=== PATIENT | female | born 1950 | race Caucasian/White ===

== ENCOUNTER → 2016-12-11 | Outpatient (CLI) | payer OTHER, MEDICARE ==
[~2016-12-11] MED LIST: ALBU8I INH; ALPH200C3 PO; AMOX500T PO; ASPI325T PO; ATRO0.03; AZEL137S; CALTTAB5 PO; CARB25TA PO; CHOL5000 PO; DESV1TAB PO; DICL1GEL TOP; DICY10CA13 PO; ESTR30V VAGINAL; FLUT50SP EACH NARE; FURO20TA PO; K-TA10TA5 PO; LEVO100T4 PO; METO25 PO; METR0.7533 TOP; NORC7.5T PO; NYST100010 TOP; OCUVTAB PO; PANT20 PO; PREG100 PO; PROBCAP4 PO; QUET1TAB66 PO; TAB-TAB PO; VITA100017 PO; VITA10002 PO; Z.0.COMMODE-3:1; Z.0.CPM; Z.0.WALKERFRONT
[2016-12-11 10:27] LABS: BLOOD GAS BASE EXCESS -1.5 mmol/L (-2-2); BLOOD GAS CARBOXYHEMOGLOBIN 1.1 % (0-4); BLOOD GAS HCO3 22 mmol/L (22-26); BLOOD GAS METHEMOGLOBIN 1.3 % (0-2); BLOOD GAS O2 HGB SATURATION 96 % (90-100); BLOOD GAS OXYGEN CONTENT 16.6 Vol % (12.0-20.0); BLOOD GAS PCO2 32 mmHg (38-42); BLOOD GAS PO2 110 mmHg (61-120); BLOOD GAS TOTAL HGB 12.2 G/DL (12.0-16.0); CRITICAL VALUE NO; DRAW SITE RT RADIAL; FIO2 21 %; NUMBER OF ARTERIAL PUNCTURES 1; STAT NO; TEMP CORR TO 98.6; ULNAR PULSE PRESENT
--- NOTE | 2016-12-14 08:50 | RSPPFT ---
DATE OF PROCEDURE: 12/11/16 COMMENTS: Spirometry with FVC of 1.9 predicted 2.7, FEV1 of 1.4 predicted 1.9, FEV1/FVC ratio 75% predicted 71%. Lung volumes and DLCO are within the predicted range. IMPRESSION: On the basis of the above, patient's flow volume is not entirely satisfactory but patient may have mild obstructive defect based on the FEF 25-75 at 63% of predicted.
== END ==
LOC: HRSP 09:03
PROVIDERS: ATTEND Internal Medicine Pulmonary Disease
DX: R05 Cough (principal)
CPT/HCPCS: 36600; 82805; 94060; 94620; 94726; 94729

== ENCOUNTER 2018-04-16 05:19 | Inpatient (IN) ==
[2018-04-16] MEDS ORDERED: Aspirin 325 MG Tablet PO PRN (05:58)
[2018-04-16] MEDS ORDERED: Chlorhexidine Gluconate 2% 1 Pack (2 Cloths) TOPICAL SCH ×2 (06:00→06:15)
[2018-04-16] MEDS ORDERED: Mupirocin 2% Nasal Oint Topical Syringe EACH NARE SCH (06:00)
[2018-04-16] MEDS ORDERED: ceFAZolin 2 GM Premix Inj 2 GM/50 ML PIGGYBACK IV.SIG SCH (06:00)
[2018-04-16] MEDS ORDERED: Sod Chloride 0.9% Inj 1,000 ML IV.CONT SCH (06:00)
[2018-04-16] MEDS ORDERED: Metoprolol Tartrate 25 MG Tablet PO SCH (06:15)
[2018-04-16] MEDS ORDERED: Sodium Chlor 0.9% Inj 500 ML IV.SIG SCH (07:00)
[2018-04-16] MEDS ORDERED: Heparin - SQ 10,000 UNITS/ML Vial ONE (07:17)
--- NOTE | 2018-04-16 08:04 | MH ---
cc: Steven Navarrete MD DATE OF ADMISSION: 04/16/2018 INDICATIONS: Shortness of breath, aortic stenosis. HISTORY OF PRESENT ILLNESS: This is a 67-year-old female who has had progressive shortness of breath. She has a history of atrial fibrillation and recently diagnosed severe aortic valve stenosis by echocardiogram. She underwent preoperative workup and cardiothoracic surgery felt that she was intermediate risk for surgical aortic valve replacement. She is now here for consideration of transcatheter aortic valve replacement. PAST MEDICAL HISTORY: Atrial fibrillation, status post prior ablation, hypertension, hyperlipidemia, hypothyroidism, fibromyalgia, posttraumatic stress disorder. ALLERGIES: METOPROLOL, DESIPRAMINE, LATEX, SULFA, TALWIN. SOCIAL HISTORY: Former smoker for about 2 years, quit in 1967. Denies any alcohol or drug use. FAMILY HISTORY: Denies any family history of early coronary disease or sudden cardiac . REVIEW OF SYSTEMS: A 12-point review of systems was performed, negative unless otherwise as noted in the history of present illness. MEDICATIONS: See medication reconciliation. PHYSICAL EXAMINATION: VITAL SIGNS: Pulse 65, blood pressure 132/80 mmHg. GENERAL: Alert and oriented x 3 in no acute distress. HEENT: Shows pupils reactive to light and accommodation. Extraocular movements are intact. NECK: No elevation jugular venous distention. No thyromegaly, lymphadenopathy or carotid bruits. LUNGS: Clear to auscultation bilaterally. CARDIOVASCULAR: Regular with a 3/6 crescendo/decrescendo murmur right upper sternal border. ABDOMEN: Nontender, nondistended with good bowel sounds. No hepatosplenomegaly. EXTREMITIES: Show no clubbing, cyanosis or edema. Good peripheral pulses. NEUROLOGIC: Cranial nerves intact. Motor and sensory grossly intact. LABORATORY DATA: White blood cell count 5.1, hemoglobin 11.4, platelet count is 267. INR is 1. Sodium 141, potassium 3.8, BUN is 20, creatinine 0.81. PREOPERATIVE WORKUP: STS score 7%. [place] [employer] Functional Class 3. BMI is 40. She is 3/4 frail. Electrocardiogram shows sinus rhythm. Pulmonary function test performed on 03/20/2018 shows FEV1 of 1.02 with severe restrictive lung disease performed on 03/20/2018. Echocardiogram from 03/05/2018 shows a jet velocity of 4.16 meters per second, mean gradient 43 mmHg, calculated valve area of 0.7 cm2. Ejection fraction 60-65% with mild to moderate AI, mild MR and mild TR. Coronary angiography reveals mild luminal irregularities performed on 03/20/2018. Computed tomography analysis 03/20/2018 shows short annulus diameter 20.4 mm long, annulus diameter 25 mm, annular area 394, sinus of Valsalva 28 mm, sinotubular junction 25 mm, iliac arteries showed minimal luminal diameter 7.1 on the right and 7.5 on the left. ASSESSMENT/PLAN: Severe symptomatic aortic valve stenosis with [place] [employer] Functional Class 3 and intermediate surgical risk for aortic valve replacement. Risks, benefits, and alternatives were discussed with the patient. The patient is agreeable to proceed forward with transcatheter aortic valve replacement. We will plan for a 23 mm Robles S3 valve. We will approach from the right common femoral artery. Steven Navarrete MD KYM/DL , 07:47 AM , 07:55 AM
[2018-04-16] MEDS ORDERED: MethylPREDNISolone Sod Succinate Inj 125 MG/2 ML Vial ONE (08:26)
--- NOTE | 2018-04-16 09:25 | P.OP ---
- Preoperative Diagnosis (1) Aortic stenosis (2) Diastolic heart failure - Postoperative Diagnosis (1) Aortic stenosis (2) Diastolic heart failure Date of procedure: 04/16/18 Procedure: Transcatheter aortic valve replacement with a 23 Karissa 3 tissue valve Balloon aortic valvuloplasty with a 20 x 4 Robles balloon Bilateral percutaneous femoral arterial access with Perclose closure on right Left femoral venous access Temporary pacemaker placement Aortography Fluoroscopy Implants: 23 Karissa 3 tissue valve Surgeon: Roma García MD Co-surgeon - Minor Pathology: none sent Operation and Findings: The risks, benefits, complications, treatment options, and expected outcomes were discussed with the patient. The possibilities of reaction to medication, pulmonary aspiration, perforation of viscus, bleeding, recurrent infection, the need for additional procedures, failure to diagnose a condition, and creating a complication requiring transfusion or operation were discussed with the patient. The patient concurred with the proposed plan, giving informed consent. The site of surgery properly noted/marked. The patient was taken to hybrid operating room, identified as Karis Wallace and the procedure verified as Transcatheter Aortic Valve Replacement. A Time Out was held and the above information confirmed. Standard monitoring lines and Slaughter catheter were placed. General anesthesia was induced. The patient was prepped and draped in a sterile fashion. Initially, left femoral arterial and venous access was acquired using a Seldinger percutaneous technique. The details of this procedure were dictated under separate note by cardiology. Once a pigtail was positioned in the aortic annulus and a temporary transvenous pacemaker wire was placed in the right ventricular apex and tested, the right femoral artery was accessed using a needle followed by a guidewire under fluoroscopic guidance. The patient was heparinized and 2 Perclose devices deployed for later closure. Serial dilators were used to dilate the right femoral artery to 14 [place] caliber. The Robles sheath was then inserted up to the distal abdominal aorta. Arch aortography was performed to define the implant view. A balloon aortic valvuloplasty was then performed using a 20 x 4 balloon with the patient being paced at 180 beats per minute. A 23 Robles Karissa 3 transcatheter aortic valve was then positioned in the annulus and deployed with the patient being paced at 180 beats per minute. Following deployment, the valve apparatus was withdrawn and arch aortography and JOHANA were performed to assess the valve. The valve had no significant perivalvular leaks. Gradients were then measured and the sheath was removed. Perclose sutures were secured with good hemostasis. Protamine was administered. Sterile dressings were placed. At the end of the operation, all sponge, instruments, and needle counts were correct. The patient was transferred to the CVICU in stable condition. Findings: No PVL post deployment Complications: none Disposition: to CVICU in stable condition
[2018-04-16] MEDS ORDERED: Iohexol 350 MG/ML 50 ML Vial (for Rad Diag) PO ONE ×2 (09:38→09:39)
[2018-04-16] MEDS ORDERED: Sugammadex Inj 200 MG/2 ML Vial IV.PUSH ONE (09:43)
[2018-04-16] MEDS ORDERED: Atropine Inj 1 MG/ML Vial IV.PUSH PRN (09:44)
[2018-04-16] MEDS ORDERED: hydrALAZINE HCl Inj 20 MG/ML Vial IV.PUSH PRN (09:44)
[2018-04-16] MEDS ORDERED: Morphine Inj 4 MG/ML Vial IV.PUSH PRN (09:44)
[2018-04-16] MEDS ORDERED: Acetaminophen 325 MG Tablet PO PRN (09:44)
[2018-04-16] MEDS ORDERED: Benzocaine/Menthol 15 MG/3.6 MG SF Lozenge BUCCAL PRN (09:44)
[2018-04-16] MEDS ORDERED: fentaNYL Citrate Inj 250 MCG/5 ML Ampul ONE (10:20)
[2018-04-16] MEDS ORDERED: Clevidipine Inj 25 MG/50 ML VIAL ONE (10:41)
[2018-04-16] MEDS: Clevidipine Inj 25 MG/50 ML VIAL IV.CONT PRN ×2 (11:40→11:41)
[2018-04-16] MEDS ORDERED: Glycopyrrolate Inj 1 MG/5 ML Syringe IV.PUSH ONE (12:00)
[2018-04-16] MEDS ORDERED: Phenylephrine/NS 1000 MCG/10ML Syringe IV.PUSH ONE (12:00)
[2018-04-16] MEDS ORDERED: Sod Chloride 0.9% Inj 1,000 ML IV.SIG ONE (12:00)
[2018-04-16] MEDS ORDERED: Sodium Chlor 0.9% Inj 100 ML IV.SIG ONE (12:00)
[2018-04-16] MEDS ORDERED: Neostigmine Inj 5 MG/5 ML Syringe IV.PUSH ONE (12:00)
[2018-04-16] MEDS ORDERED: Lidocaine PF 1% Inj 5 ML Syringe INFILTRATN ONE (12:00)
--- NOTE | 2018-04-16 12:08 | MA ---
cc: Steven Navarrete MD DATE: 04/16/2018 REFRACTORY GRINDER OPERATOR: Steven Navarrete MD, [facility] PRIMARY SURGEON: Dr. Roma García. PROCEDURES PERFORMED: 1. Fluoroscopy with interpretation. 2. Left heart catheterization. 3. Ascending aortography. 4. Aortic balloon valvuloplasty. 5. Transcatheter aortic valve replacement. 6. Temporary transvenous pacemaker placement. 7. Transesophageal echocardiography. METHOD: Risks, benefits, and alternatives were discussed with the patient. The patient understood and consented to the procedure. The patient was brought into the catheterization laboratory and placed on the catheterization table. Bilateral groins were prepped and draped. Left groin was anesthetized with 2% lidocaine. The left common femoral artery was cannulated and 5-[place]izen [place] 11 cm sheath was placed. Left femoral vein was accessed and 11 cm sheath was placed. Right common femoral artery was cannulated and an 8-[place] sheath was placed. Two Perclose devices were then placed, and the Robles 14-[place]izen [place] sheath was then advanced up to the level of the descending aorta. TEMPORARY TRANSVENOUS PACEMAKER PLACEMENT: A balloon-tipped temporary transvenous pacemaker was advanced to the right internal jugular venous sheath to the right ventricular apex. Appropriate pacing and capture were confirmed. TRANSESOPHAGEAL ECHOCARDIOGRAPHY: Please see separate detailed report. AORTIC VALVULOPLASTY: A 6-[place]izen [place] AL1 guide catheter was advanced to the ascending aorta. A 0.035-inch Amplatz Super Stiff wire was then advanced across the aortic valve, and AL1 catheter into the left ventricle. A 0.035 inch, 260 cm standard J wire was then advanced into the left ventricular apex. AL1 catheter removed. A 5-[place]izen [place] pigtail catheter advanced to the left ventricular apex and wire removed. A 0.035 inch, 260 cm Confida wire was then advanced to the apex of the left ventricle and the pigtail catheter removed. A 20 x 40 mm Robles valvuloplasty balloon was advanced to the aortic valve. Under rapid pacing, the valvuloplasty balloon was then deployed. Repeat transesophageal echocardiogram now showed moderate aortic insufficiency. No pericardial effusion. TRANSCATHETER AORTIC VALVE REPLACEMENT: A 23 mm S3 Robles bioprosthetic aortic valve was then prepped and advanced over the Confida wire to the level of descending aorta. The balloon was pulled into the stent. The deployment device was then advanced up and around the arch, and crossed into the aortic valve. The Robles S3 valve was then confirmed to be in appropriate position under rapid pacing. The device was then deployed. Repeat transesophageal echocardiogram showed no paravalvular leak and good stent placement with good apposition, and no significant aortic valve gradient. The wire was removed. The device was removed, and 2 Perclose devices in the right common femoral artery were closed with good hemostasis. Two 5-Citizen [place] Vascade devices were deployed in the left common femoral artery and venous sheaths with good hemostasis. Heparin was administered throughout the entire procedure to maintain appropriate anticoagulation. INTRAOPERATIVE POST TAVR JOHANA FINDINGS: YRIS 1.3 cm2 mean gradient 9 mmHg no aortic regurgitation CONCLUSIONS: 1. Successful transcatheter aortic valve replacement with bioprosthetic Robles S3, 23 mm valve. 2. Successful aortic balloon valvuloplasty. 3. Successful utilization of temporary transvenous pacemaker. PLAN: Patient will be monitored closely for any post-procedural complications. The patient will be extubated and transferred to the cardiovascular intensive care unit. We will consult Dr. Draper from electrophysiology to evaluate for any conduction disturbances. She did develop a bundle branch block. No complete heart block. We will load with Plavix and continue aspirin. MD KYM Edmond/guillermo/simone , 09:44 AM , 09:54 AM MTDD
--- NOTE | 2018-04-16 12:10 | P.CONCC ---
History of Present Illness Service: Critical care Consult date: 04/16/18 Requesting Physician: Steven Navarrete Reason for Consult: severe , s/p TAVR Primary Care Provider: Alden Cuba [facility] Provider: Alden Cuba Chief Complaint: Symptomatic History of Present Illness: Patient is a 67-year-old female with past medical history significant for severe symptomatic aortic stenosis, chronic atrial fibrillation, previous tobacco abuse who was admitted today to Dr. Navarrete's service for transcatheter aortic valve replacement. Patient underwent TAVR procedure today with a 23 Karissa 3 tissue valve after balloon aortic valvuloplasty, and temporal pacemaker placement. Postprocedure patient was successfully extubated hemostasis was achieved. She was loaded with Plavix 600 mg and aspirin was continued. Patient was transferred to CVICU where I met her. Patient is lying comfortably in bed slightly somnolent. Bilateral pedal pulses are palpable and no groin hematomas bilaterally. Blood pressure was more than 170 currently started on claviprex infusion with good control. Review of Systems All other systems reviewed negative except as stated in HPI PMFSH - History History Provided By: Patient, Medical Record - Medical History Medical History: Medical History (Last Updated 04/16/18 @ 06:14 by Bridgette Dejesus RN) Asthma Atrial fib/flutter, transient Fibromyalgia Neuropathy Restless leg syndrome Atrial fibrillation COPD (chronic obstructive pulmonary disease) Diabetes Hiatal hernia Hypertension Hypothyroid Murmur Sleep apnea - Surgical History Surgical History: Surgical History (Last Updated 03/20/18 @ 12:32 by Roma García MD) H/O cystoscopy - Tobacco History Second Hand Smoke Exposure: No Smoking Status: Former smoker - Alcohol History How Often Do You Have a Drink Containing Alcohol: Never - Substance Use History Substance History: No History of Abuse - Travel History History of Recent Travel: No Medications and Allergies Active Medications: Active Medications Acetaminophen (Tylenol) 650 mg PO Q4H PRN PRN Reason: PAIN SCALE 1 TO 2 Stop: 04/17/18 09:43 Aspirin (Aspirin) 325 mg PO SHOEMAKER CUSTOM PRN PRN Reason: SEE LABEL COMMENTS Stop: 04/16/18 18:00 Last Admin: 04/16/18 06:25 Dose: 325 mg Aspirin (Aspirin Chew) 81 mg PO DAILY CHAUNCEY Atropine Sulfate (Atropine Inj) 0.5 mg IV.PUSH UNSCH PRN PRN Reason: VAGAL REPONSE Stop: 04/17/18 09:43 Benzocaine/Menthol (Cepacol Max Strength) 1 lozenge BUCCAL Q3H PRN PRN Reason: SORE THROAT Stop: 04/17/18 09:43 Chlorhexidine Gluconate (Chlorhexidine 2% Cloth) 3 pack TOPICAL SHOEMAKER CUSTOM [facility] Stop: 04/19/18 05:59 Last Admin: 04/16/18 06:26 Dose: 3 pack Chlorhexidine Gluconate (Chlorhexidine 2% Cloth) 3 pack TOPICAL SHOEMAKER CUSTOM [facility] Stop: 04/19/18 06:03 Clopidogrel Bisulfate (Plavix) 75 mg PO DAILY [facility] Hydralazine HCl (Apresoline Inj) 10 mg IV.PUSH Q30M PRN PRN Reason: SBP > 160 mmHg Cefazolin Sodium/Dextrose (Ancef 2 Gm Premix Inj) 2 gm in 50 mls @ 100 mls/hr IV.SIG ONCE [facility] Stop: 04/19/18 05:59 Last Infusion: 04/16/18 08:45 Dose: Infused Sodium Chloride (Ns Inj) 1,000 mls @ 125 mls/hr IV.CONT .Q8H [facility] Last Admin: 04/16/18 11:39 Dose: Not Given Lactated Ringer's (Lr 1000 Ml Inj) 1,000 mls @ 30 mls/hr IV.SIG .Q24H [facility] Stop: 04/19/18 06:03 Last Admin: 04/16/18 11:40 Dose: Not Given Sodium Chloride (Ns Inj) 500 mls @ 30 mls/hr IV.SIG .Q10H [facility] Stop: 04/19/18 06:03 Clevidipine (Cleviprex Inj) 25 mg in 50 mls @ 2 mls/hr IV.CONT TITRATE PRN; Protocol PRN Reason: Per protocol Last Admin: 04/16/18 11:41 Dose: 1 mg/hr, 2 mls/hr Metoprolol Tartrate (Lopressor) 25 mg PO SHOEMAKER CUSTOM [facility] Stop: 04/19/18 06:03 Morphine Sulfate (Morphine Inj) 2 mg IV.PUSH Q30M PRN PRN Reason: BREAKTHROUGH PAIN Mupirocin (Bactroban 2% Nasal Oint) 1 applicatio EACH NARE [employer]OEMAKER CUSTOM [facility] Stop: 04/19/18 05:59 Ondansetron HCl (Zofran Inj) 4 mg IV.PUSH ONCE PRN PRN Reason: NAUSEA OR VOMITING Oxycodone/Acetaminophen (Percocet 5/325 Mg) 1 tab PO Q6H PRN PRN Reason: PAIN SCALE 3 TO 5 Povidone Iodine (Betadine 5% Antisepsis Kit) 1 applicatio TOPICAL [employer]OEMAKER [employer]OM [facility] Stop: 04/19/18 05:59 Last Admin: 04/16/18 06:26 Dose: 1 applicatio Povidone Iodine (Betadine 5% Antisepsis Kit) 1 applicatio EACH NARE [employer]OEMAKER [employer]OM [facility] Stop: 04/19/18 06:03 Allergies Allergy/AdvReac Type Severity Reaction Status Date / Time desipramine Allergy Severe HIVES Verified 04/16/18 05:51 latex Allergy Severe ITCHY Verified 04/16/18 05:51 adhesive Allergy Intermediate SKIN ULCERS Verified 04/16/18 05:51 pentazocine Allergy Intermediate HIVES Verified 04/16/18 05:51 Sulfa (Sulfonamide Allergy Intermediate HIVES Verified 04/16/18 05:51 Antibiotics) lactose AdvReac Severe Diarrhea Verified 04/16/18 05:51 codeine AdvReac Intermediate NAUSEA Verified 04/16/18 05:51 metoprolol AdvReac Mild Hives Verified 04/16/18 05:53 Kizyffd-Dpt-Kfl Reductase AdvReac Mild Hives Verified 04/16/18 05:53 Inhibitor Home Medications Medication Instructions Recorded Confirmed Type alpha lipoic acid 200 mg PO 03/20/18 History amoxicillin 500 mg PO QID 03/20/18 04/16/18 History aspirin 325 mg PO DAILY 03/20/18 04/16/18 History atenolol 50 mg PO DAILY 03/20/18 04/16/18 History atorvastatin 10 mg PO DAILY 03/20/18 04/16/18 History bupropion HCl [Wellbutrin SR] 150 mg PO DAILY 03/20/18 04/16/18 History calcium carbonate-vitamin D3 2 tab PO DAILY 03/20/18 04/16/18 History [Calcium 600 + D(3)] carbidopa-levodopa 2 tab PO HS 03/20/18 04/16/18 History desvenlafaxine 100 mg PO DAILY 03/20/18 04/16/18 History dicyclomine 10 mg PO TID 03/20/18 04/16/18 History furosemide 40 mg PO BID 03/20/18 04/16/18 History leflunomide 20 mg PO DAILY 03/20/18 04/16/18 History levothyroxine 100 mcg PO DAILY 03/20/18 04/16/18 History pantoprazole 40 mg PO BID 03/20/18 04/16/18 History potassium chloride [K-Tab] 20 meq PO DAILY 03/20/18 04/16/18 History pramipexole 0.5 mg PO TID 03/20/18 04/16/18 History pregabalin [Lyrica] 150 mg PO TID 03/20/18 04/16/18 History albuterol sulfate [Ventolin HFA] 2 puff INHALATION Q4-6H PRN 04/16/18 04/16/18 History ascorbic acid (vitamin C) [Vitamin 1 g PO DAILY 04/16/18 04/16/18 History C] ergocalciferol (vitamin D2) 50,000 unit PO QWEEK 04/16/18 04/16/18 History [Vitamin D2] fluticasone 2 spray INTRANASAL DAILY 04/16/18 04/16/18 History hydrocodone-acetaminophen 1 tab PO Q4-6H PRN 04/16/18 04/16/18 History magnesium 250 mg PO DAILY 04/16/18 04/16/18 History quetiapine 400 mg PO QPM 04/16/18 04/16/18 History vit C-vit F-pjbufe-wma-om-3 1 cap PO DAILY 04/16/18 04/16/18 History [Ocuvite] vitamin D29-cjcoq acid 1 tab PO DAILY 04/16/18 04/16/18 History Physical Exam Vital signs: Vital Signs 04/16/18 05:35 04/16/18 10:10 04/16/18 10:56 Temperature 96.2 F L Pulse Rate 65 101 H Respiratory Rate 18 10 L Blood Pressure 132/80 162/75 H Pulse Oximetry 99 04/16/18 11:00 04/16/18 12:00 Temperature 97.2 F L 97.5 F L Pulse Rate 66 68 Respiratory Rate 12 12 Blood Pressure 151/69 H 142/66 H Pulse Oximetry 93 L 96 Intake & Output 04/15/18 04/16/18 04/16/18 18:59 06:59 18:59 Intake Total 1350 / 1350 Output Total 130 / 130 Balance 1220 / 1220 Weight 107.7 kg Intake: IV 50 / 50 Ancef 2 GM Premix Inj 2 gm In 50 / 50 50 ml @ 100 mls/hr IV.SIG ONCE CHAUNCEY Rx#:[id number] Anesthesia Amount 1300 / 1300 Output: Estimated Blood Loss 30 / 30 Urine Amount (Catheter) 100 / 100 Indwelling Urethral Catheter 100 / 100 Other: Weight On Admission 107.7 kg Narrative: GENERAL: Lying in CVICU bed, no acute distress HEENT: Pupils reactive to light and accommodation. Extraocular movements are intact. NECK: Right-sided cordis in place, with temporary venous pacer LUNGS: Clear to auscultation bilaterally. CARDIOVASCULAR: Patient has grade 2 systolic murmur predominantly heard in the left sternal border. S1-S2 normal ABDOMEN: Obese nontender EXTREMITIES: Bilateral groin sites dressing intact no groin hematoma. Good peripheral pulses. NEUROLOGIC: Awake alert oriented. Motor and sensory grossly intact. - Urinary Catheter Management Indwelling Urethral Catheter Cath placed during this visit: yes Reason for continuing: Hourly intake/output Insertion date: 04/16/18 Insertion time: 08:00 Septic Shock Reassessment Septic shock perfusion: reassessment completed Assessment and Plan - Assessment and Plan Plan: ASSESSMENT: Severe aortic stenosis status post TAVR Uncontrolled hypertension History of COPD History of diabetes PLAN: NEURO: -Minimize any sedation -Percocet as needed for pain RESP: -DuoNeb every 6 hours as needed -Aggressive pulmonary toilet -Oxygen by nasal cannula to keep saturation above 90% CV: -s/p balloon valvuloplasty and TAVR -No significant leak on postop JOHANA per Dr. Thompson note -Patient did develop bundle branch block EP consult is pending -Temporary pacemaker wire in place -Loaded with Plavix, continue Plavix and aspirin -Cleviprex gtt and PRN hydralazine for BP control -Defer resuming home antihypertensives to Dr. Navarrete GI: -N.p.o., diet per Dr. Navarrete : -Monitor renal function closely. Slaughter catheter. ID: -Perioperative antibiotics HEME: -Monitor CBC, coags ENDO: -Electrolyte replacement per protocol -Sliding scale insulin if needed PROPH: -Avoid chemical DVT prophylaxis until cleared by Dr. Navarrete. GI prophylaxis not indicated if patient can start diet today LINES: -Utilize peripheral IVs, central line if needed Level 3 new consult Code Status: Full
[2018-04-16] MEDS ORDERED: Lisinopril 10 MG Tablet PO ONE (14:30)
--- NOTE | 2018-04-16 17:03 | ECG ---
Date Performed: 04/16/2018 Time Performed: 06:18:08 PTAGE: 67 years EKG: Sinus rhythm . Normal ECG PREVIOUS TRACING : 03/20/2018 09.01 Since the previous tracing, no significant change noted DOCTOR: Koki Rangel Interpretating Date/Time 04/16/2018 17:03:16
[2018-04-17 04:42] LABS: Hematocrit 32.2 % (35.0-46.0); Hemoglobin 10.3 gm/dL (11.6-15.3); Mean Corpuscular HGB Conc 32.1 % (32.0-36.0); Mean Corpuscular Hemoglobin 25.9 pg (27.0-34.0); Mean Corpuscular Volume 80.6 fL (80.0-100.0); Mean Platelet Volume 7.3 fL (7.0-11.0); Platelet Count 239 th/mm3 (150-450); Red Cell Distribution Width 15.8 % (11.6-17.2); White Blood Count 11.3 th/mm3 (4.0-11.0)
[2018-04-17 05:04] LABS: Anion Gap 9 meq/L (5-15); Blood Urea Nitrogen 11 mg/dL (7-18); Calcium 8.2 mg/dL (8.5-10.1); Chloride 106 meq/L (98-107); Glomerular Filtration Rate Greater Than 89 mL/min (>89); Glucose,Random 144 mg/dL (74-106); Potassium 3.7 meq/L (3.5-5.1); Sodium 142 meq/L (136-145)
--- NOTE | 2018-04-17 08:03 | P.PNCA ---
<Chris Perez - Last Filed: 04/17/18 08:04> Subjective Interval history: Some chest pressure overnight. No shortness of breath, palpitations, lightheadedness, passing out. No issues with groin access sites. Physical Exam Vital signs: Vital Signs 04/16/18 10:10 04/16/18 10:56 04/16/18 11:00 Temperature 96.2 F L 97.2 F L Pulse Rate 101 H 66 Respiratory Rate 10 L 12 Blood Pressure 162/75 H 151/69 H Pulse Oximetry 99 93 L 04/16/18 12:00 04/16/18 12:11 04/16/18 12:57 Temperature 97.5 F L 97.9 F Pulse Rate 68 68 79 Respiratory Rate 12 16 Blood Pressure 142/66 H 132/65 Pulse Oximetry 96 04/16/18 14:00 04/16/18 15:00 04/16/18 15:27 Temperature 98.2 F 98.2 F Pulse Rate 80 73 Respiratory Rate 4 L 14 Blood Pressure 123/58 L Pulse Oximetry 94 L 95 94 L 04/16/18 16:00 04/16/18 16:09 04/16/18 17:00 Temperature 98.2 F Pulse Rate 69 75 64 Respiratory Rate 14 14 Blood Pressure 129/70 118/52 L Pulse Oximetry 92 L 94 L 04/16/18 17:53 04/16/18 20:00 04/16/18 21:55 Temperature 97.9 F Pulse Rate 82 78 Respiratory Rate 14 16 Blood Pressure 141/82 H 122/55 L Pulse Oximetry 95 96 96 04/17/18 00:00 04/17/18 04:00 04/17/18 07:43 Temperature 97.8 F 98.0 F Pulse Rate 96 H 80 Respiratory Rate 16 16 Blood Pressure 137/70 154/71 H Pulse Oximetry 97 97 94 L Intake & Output 04/16/18 04/17/18 04/17/18 18:59 06:59 18:59 Intake Total 1830 / 1830 480 / 480 Output Total 2004 700 / 700 Balance -175 / -175 -220 / -220 Weight 233 lb 11.04 oz Intake: IV 50 / 50 Ancef 2 GM Premix Inj 2 gm In 50 / 50 50 ml @ 100 mls/hr IV.SIG ONCE CHAUNCEY Rx#:[id number] Oral 480 / 480 480 / 480 Anesthesia Amount 1300 / 1300 Output: Urine 300 / 300 Estimated Blood Loss 30 / 30 Urine Amount (Catheter) 1974 400 / 400 Indwelling Urethral Catheter 1974 Straight 400 / 400 Other: # Bowel Movements 0 Narrative: GENERAL: Well-developed well-nourished. In no acute distress. NECK: No carotid bruits. No JVD. CARDIOVASCULAR: Regular rate and rhythm. Craig valve sounds. Bilateral groins with minimal ecchymosis, no swelling or tenderness. DP pulses 2+ bilaterally RESPIRATORY: No accessory muscle use. Clear to auscultation. Breath sounds equal bilaterally. MUSCULOSKELETAL: No clubbing or cyanosis. No edema. NEUROLOGICAL: Awake and alert. Normal speech. - Urinary Catheter Management Indwelling Urethral Catheter Cath placed during this visit: yes Reason for continuing: Hourly intake/output Insertion date: 04/16/18 Insertion time: 08:00 Straight Cath placed during this visit: no Assessment and Plan - Plan 67-year-old female with a past medical history of severe aortic stenosis status post TAVR 04/16 Doing well Limited echo today Patient did have bundle branch block procedure. EP consult pending. Aspirin, Plavix OOB <Minor,Steven - Last Filed: 04/17/18 08:24> Physical Exam Vital signs: Vital Signs 04/16/18 10:10 04/16/18 10:56 04/16/18 11:00 Temperature 96.2 F L 97.2 F L Pulse Rate 101 H 66 Respiratory Rate 10 L 12 Blood Pressure 162/75 H 151/69 H Pulse Oximetry 99 93 L 04/16/18 12:00 04/16/18 12:11 04/16/18 12:57 Temperature 97.5 F L 97.9 F Pulse Rate 68 68 79 Respiratory Rate 12 16 Blood Pressure 142/66 H 132/65 Pulse Oximetry 96 04/16/18 14:00 04/16/18 15:00 04/16/18 15:27 Temperature 98.2 F 98.2 F Pulse Rate 80 73 Respiratory Rate 4 L 14 Blood Pressure 123/58 L Pulse Oximetry 94 L 95 94 L 04/16/18 16:00 04/16/18 16:09 04/16/18 17:00 Temperature 98.2 F Pulse Rate 69 75 64 Respiratory Rate 14 14 Blood Pressure 129/70 118/52 L Pulse Oximetry 92 L 94 L 04/16/18 17:53 04/16/18 20:00 04/16/18 21:55 Temperature 97.9 F Pulse Rate 82 78 Respiratory Rate 14 16 Blood Pressure 141/82 H 122/55 L Pulse Oximetry 95 96 96 04/17/18 00:00 04/17/18 04:00 04/17/18 07:43 Temperature 97.8 F 98.0 F Pulse Rate 96 H 80 Respiratory Rate 16 16 Blood Pressure 137/70 154/71 H Pulse Oximetry 97 97 94 L Intake & Output 04/16/18 04/17/18 04/17/18 18:59 06:59 18:59 Intake Total 1830 / 1830 480 / 480 Output Total 2004 700 / 700 Balance -175 / -175 -220 / -220 Weight 106 kg Intake: IV 50 / 50 Ancef 2 GM Premix Inj 2 gm In 50 / 50 50 ml @ 100 mls/hr IV.SIG ONCE CHAUNCEY Rx#:[id number] Oral 480 / 480 480 / 480 Anesthesia Amount 1300 / 1300 Output: Urine 300 / 300 Estimated Blood Loss 30 / 30 Urine Amount (Catheter) 1974 400 / 400 Indwelling Urethral Catheter 1974 Straight 400 / 400 Other: # Bowel Movements 0 - Urinary Catheter Management Indwelling Urethral Catheter Cath placed during this visit: no Straight Cath placed during this visit: no Assessment and Plan - Attending Attestation doing well severe s/p tavr echo today add ACEi ambulate anticipate possible DC later today
--- NOTE | 2018-04-17 08:31 | P.DS ---
Date of admission: 04/16/18 05:19 Primary care physician: Alden Cuba Brief History from admission: presented with SOB and echo showed severe DS: Diagnosis - Discharge Diagnosis (1) Aortic stenosis Status: Acute (2) HTN (hypertension) Status: Acute DS: Medications - Discharge Medications Prescriptions: clopidogrel [Plavix] 75 mg PO DAILY 30 Days #30 tab DS: Summary Hospital Course: s/p TAVR - Time Spent with Patient Total time spent providing and/or coordinating discharge services: Less than 30 minutes - Quality: VTE Deep Vein Thrombosis/Pulmonary Embolism Present on Admission: No Exam Vital signs: Vital Signs 04/16/18 10:10 04/16/18 10:56 04/16/18 11:00 Temperature 96.2 F L 97.2 F L Pulse Rate 101 H 66 Respiratory Rate 10 L 12 Blood Pressure 162/75 H 151/69 H Pulse Oximetry 99 93 L 04/16/18 12:00 04/16/18 12:11 04/16/18 12:57 Temperature 97.5 F L 97.9 F Pulse Rate 68 68 79 Respiratory Rate 12 16 Blood Pressure 142/66 H 132/65 Pulse Oximetry 96 04/16/18 14:00 04/16/18 15:00 04/16/18 15:27 Temperature 98.2 F 98.2 F Pulse Rate 80 73 Respiratory Rate 4 L 14 Blood Pressure 123/58 L Pulse Oximetry 94 L 95 94 L 04/16/18 16:00 04/16/18 16:09 04/16/18 17:00 Temperature 98.2 F Pulse Rate 69 75 64 Respiratory Rate 14 14 Blood Pressure 129/70 118/52 L Pulse Oximetry 92 L 94 L 04/16/18 17:53 04/16/18 20:00 04/16/18 21:55 Temperature 97.9 F Pulse Rate 82 78 Respiratory Rate 14 16 Blood Pressure 141/82 H 122/55 L Pulse Oximetry 95 96 96 04/17/18 00:00 04/17/18 04:00 04/17/18 07:43 Temperature 97.8 F 98.0 F Pulse Rate 96 H 80 Respiratory Rate 16 16 Blood Pressure 137/70 154/71 H Pulse Oximetry 97 97 94 L Intake & Output 04/16/18 04/17/18 04/17/18 18:59 06:59 18:59 Intake Total 1830 / 1830 480 / 480 Output Total 2004 700 / 700 Balance -175 / -175 -220 / -220 Weight 106 kg Intake: IV 50 / 50 Ancef 2 GM Premix Inj 2 gm In 50 / 50 50 ml @ 100 mls/hr IV.SIG ONCE CHAUNCEY Rx#:[id number] Oral 480 / 480 480 / 480 Anesthesia Amount 1300 / 1300 Output: Urine 300 / 300 Estimated Blood Loss 30 / 30 Urine Amount (Catheter) 1974 400 / 400 Indwelling Urethral Catheter 1974 Straight 400 / 400 Other: # Bowel Movements 0 - Constitutional no acute distress - Routine HEENT Exam Eye: Present: EOMI, PERRL - Routine Neck Exam Absent: JVD - Routine Respiratory Exam Present: CTA bilaterally - Routine Cardiovascular Exam Present: RRR - Routine Abdominal Exam Present: soft, normoactive bowel sounds - Routine Extremities Exam Absent: edema Results Procedures completed during hospitalization: TAVR Labs on day of discharge: Labs from last 24 hours 04/17/18 04/17/18 04/16/18 04:20 04:20 12:26 WBC 11.3 H RBC 4.00 Hgb 10.3 L Hct 32.2 L MCV 80.6 MCH 25.9 L MCHC 32.1 RDW 15.8 Plt Count 239 MPV 7.3 Sodium 142 Potassium 3.7 Chloride 106 Carbon Dioxide 27.0 Anion Gap 9 BUN 11 Creatinine 0.63 Estimated GFR Greater than 89 POC Glucose 119 H Random Glucose 144 H Calcium 8.2 L MTS Gel Crossmatch 04/16/18 05:53 WBC RBC Hgb Hct MCV MCH MCHC RDW Plt Count MPV Sodium Potassium Chloride Carbon Dioxide Anion Gap BUN Creatinine Estimated GFR POC Glucose Random Glucose Calcium MTS Gel Crossmatch See Detail Discharge Plan - Discharge Disposition Patient Disposition: Discharge Home - Discharge Condition Condition: Good - Discharge Order Discharge Orders: Discharge Order (Routine); Ordered 04/17/18 Ordered By: Steven Navarrete Cardiology Clear for Discharge (Routine); Ordered 04/17/18 Ordered By: Steven Navarrete - Discharge Details Anticipated Discharge Date: 04/17/18 - Physicians Team Primary Care Provider: Alden Cuba Attending Provider: Steven Navarrete Other Providers: Sharon Villela MD ; Sukhi Draper MD - Rxs /Orders / Referrals /Forms Prescriptions: New clopidogrel [Plavix] 75 mg Tablet 75 mg PO DAILY 30 Days Qty: 30 RF: 6 Continue albuterol sulfate [Ventolin HFA] 90 mcg/actuation Hfa Aerosol Inhaler 2 puff INHALATION Q4-6H PRN (Reason: Shortness Of Breath Or Wheezing) alpha lipoic acid 200 mg Tablet 200 mg PO amoxicillin 500 mg Tablet 500 mg PO QID ascorbic acid (vitamin C) [Vitamin C] 1,000 mg Tablet 1 g PO DAILY aspirin 325 mg Tablet 325 mg PO DAILY atorvastatin 10 mg Tablet 10 mg PO DAILY bupropion HCl [Wellbutrin SR] 150 mg Tablet Extended Release 12 Hr 150 mg PO DAILY calcium carbonate-vitamin D3 [Calcium 600 + D(3)] 600 mg calcium- 200 unit Capsule 2 tab PO DAILY carbidopa-levodopa 25-100 mg Tablet 2 tab PO HS desvenlafaxine 100 mg Tablet Extended Release 24 Hr 100 mg PO DAILY dicyclomine 10 mg Capsule 10 mg PO TID ergocalciferol (vitamin D2) [Vitamin D2] 50,000 unit Capsule 50,000 unit PO QWEEK fluticasone 50 mcg/actuation [place],Suspension 2 spray INTRANASAL DAILY hydrocodone-acetaminophen 5-325 mg Tablet 1 tab PO Q4-6H PRN (Reason: Pain) leflunomide 20 mg Tablet 20 mg PO DAILY levothyroxine 100 mcg Tablet 100 mcg PO DAILY magnesium 250 mg Tablet 250 mg PO DAILY pantoprazole 40 mg Tablet,Delayed Release (Dr/Ec) 40 mg PO BID potassium chloride [K-Tab] 10 mEq Tablet Extended Release 20 meq PO DAILY pramipexole 0.5 mg Tablet 0.5 mg PO TID pregabalin [Lyrica] 150 mg Capsule 150 mg PO TID quetiapine 400 mg Tablet Extended Release 24 Hr 400 mg PO QPM vit C-vit Q-urhpsj-woa-om-3 [Ocuvite] [id number] vd-kcey-pz-mg Capsule 1 cap PO DAILY vitamin C61-cbqhr acid 0.5-1 mg Tablet 1 tab PO DAILY Changed furosemide 20 mg Tablet 40 mg PO DAILY Qty: 0 RF: 0 Changed from: 40 mg oral twice daily Discontinued atenolol 50 mg Tablet 50 mg PO DAILY Referrals: Alden Cuba MD [Primary Care Provider] - See Instructions - Discharge Instructions Patient Printed Instructions: Transcatheter Aortic Valve Replacement (DC)
[2018-04-17] MEDS ORDERED: Lisinopril 20 MG Tablet PO SCH (09:00)
[2018-04-17 09:11] VITALS: RESP 20
--- NOTE | 2018-04-17 09:38 | MB ---
cc: Sukhi Draper MD DATE: 04/17/2018 HISTORY OF PRESENT ILLNESS: Ms. Wallace is a 67-year-old female with severe aortic stenosis, atrial fibrillation, previous ablation, high blood pressure, hyperlipidemia, status post previous aortic valve replacement referred for evaluation. Possible seizure. Possible conduction abnormality. The chart was reviewed. The patient was evaluated. ALLERGIES: METOPROLOL, LATEX, SULFA, DESIPRAMINE AND TALWIN. SOCIAL HISTORY: The patient stopped smoking 2 years ago. Negative for drinking. FAMILY HISTORY: Noncontributory to her current medical condition. MEDICATIONS: Currently, she is on Plavix 75 mg a day. She is on aspirin. She is on Tylenol p.r.n. She is on lisinopril 20 mg a day. She is on Lopressor p.r.n. REVIEW OF SYSTEMS: The patient had no chest pain or chest discomfort. No fever. PHYSICAL EXAMINATION: GENERAL: Alert, fully oriented. VITAL SIGNS: Blood pressure 143/64, pulse 90, respiratory rate 18. LUNGS: Ventilated. CARDIOVASCULAR: S1, S2, regular. Irregular area of central line access and a temporary pacemaker. ABDOMEN: Soft. No masses. EXTREMITIES: No edema. ELECTROCARDIOGRAM: Shows sinus with minimal ST changes. LABORATORY DATA: Hemoglobin is 10.2, white blood cell 11.3. Potassium 3.7, creatinine 0.63. ASSESSMENT AND RECOMMENDATIONS: Ms. Wallace is stable. Electrocardiogram showed no change pre and post-transaortic valve replacement. There is an episode of atrioventricular block. She was having what they call premature ventricular tachycardia, but they were like sporadic right ventricular pacing. No significant bradycardia observed. At this point, my recommendation is observation. The patient can be discharged home whenever it is okay with medicine team. Case discussed with the patient and the nurse. Sukhi Draper MD HS/KD , 09:12 AM , 09:19 AM
--- NOTE | 2018-04-17 10:08 | P.PNCV ---
- Note Subjective/Hospital Course: 67-year-old female who has had progressive shortness of breath. She has a history of atrial fibrillation and recently diagnosed severe aortic valve stenosis by echocardiogram. She underwent preoperative workup and cardiothoracic surgery felt that she was intermediate risk for surgical aortic valve replacement. She is now here for consideration of transcatheter aortic valve replacement. PAST MEDICAL HISTORY: Atrial fibrillation, status post prior ablation, hypertension, hyperlipidemia, hypothyroidism, fibromyalgia, posttraumatic stress disorder. surgery : 04/16 Transcatheter aortic valve replacement with a 23 Karissa 3 tissue valve Balloon aortic valvuloplasty with a 20 x 4 Robles balloon Bilateral percutaneous femoral arterial access with Perclose closure on right Left femoral venous access Temporary pacemaker placement Aortography Fluoroscopy 04/17 pt doing well, no bradycardia , temp pacer Dc possible dc home later today Objective: Vital Signs - 24 hr 04/16/18 10:10 04/16/18 10:56 04/16/18 11:00 Temperature 96.2 F L 97.2 F L Pulse Rate 101 H 66 Respiratory Rate 10 L 12 Blood Pressure 162/75 H 151/69 H Pulse Oximetry 99 93 L 04/16/18 12:00 04/16/18 12:11 04/16/18 12:57 Temperature 97.5 F L 97.9 F Pulse Rate 68 68 79 Respiratory Rate 12 16 Blood Pressure 142/66 H 132/65 Pulse Oximetry 96 04/16/18 14:00 04/16/18 15:00 04/16/18 15:27 Temperature 98.2 F 98.2 F Pulse Rate 80 73 Respiratory Rate 4 L 14 Blood Pressure 123/58 L Pulse Oximetry 94 L 95 94 L 04/16/18 16:00 04/16/18 16:09 04/16/18 17:00 Temperature 98.2 F Pulse Rate 69 75 64 Respiratory Rate 14 14 Blood Pressure 129/70 118/52 L Pulse Oximetry 92 L 94 L 04/16/18 17:53 04/16/18 20:00 04/16/18 21:55 Temperature 97.9 F Pulse Rate 82 78 Respiratory Rate 14 16 Blood Pressure 141/82 H 122/55 L Pulse Oximetry 95 96 96 04/17/18 00:00 04/17/18 04:00 04/17/18 07:15 Temperature 97.8 F 98.0 F 98.2 F Pulse Rate 96 H 80 90 Respiratory Rate 16 16 20 Blood Pressure 137/70 154/71 H 146/64 H Pulse Oximetry 97 97 04/17/18 07:43 04/17/18 08:00 04/17/18 09:34 Temperature 98.2 F Pulse Rate 90 Respiratory Rate Blood Pressure 146/64 H Pulse Oximetry 94 L 95 95 GENERAL: A&O x 3 SKIN: Warm and dry. dressing in place right IJ, dressing in place both groin sites, mild ecchymosis HEAD: Normocephalic. EYES: No scleral icterus. No injection or drainage. NECK: Supple, trachea midline. No JVD or lymphadenopathy. CARDIOVASCULAR: Regular rate and rhythm without murmurs, gallops, or rubs. RESPIRATORY: Breath sounds equal bilaterally. No accessory muscle use. GASTROINTESTINAL: Abdomen soft, non-tender, nondistended. MUSCULOSKELETAL: No cyanosis, or edema. BACK: Nontender without obvious deformity. No CVA tenderness. Labs: Laboratory Results - last 12 hr 04/16/18 04/17/18 04/17/18 05:53 04:20 04:20 WBC 11.3 H RBC 4.00 Hgb 10.3 L Hct 32.2 L MCV 80.6 MCH 25.9 L MCHC 32.1 RDW 15.8 Plt Count 239 MPV 7.3 Sodium 142 Potassium 3.7 Chloride 106 Carbon Dioxide 27.0 Anion Gap 9 BUN 11 Creatinine 0.63 Estimated GFR Greater than 89 Random Glucose 144 H Calcium 8.2 L MTS Gel Crossmatch See Detail Result Diagrams: 04/17/18 04:20 04/17/18 04:20 Pulmonary: NSR - Plan (1) S/P TAVR (transcatheter aortic valve replacement) Plan: ASA, plavix , LALO Doing well will defer further orders to cardiology will see prn (2) Aortic stenosis (4) Diastolic heart failure (2) Aortic stenosis Qualifiers: Cardiac valve disease etiology: etiology unspecified Qualified Code(s): I35.0 - Nonrheumatic aortic (valve) stenosis (4) Diastolic heart failure Qualifiers: Heart failure chronicity: acute on chronic Qualified Code(s): I50.33 - Acute on chronic diastolic (congestive) heart failure
--- NOTE | 2018-04-17 10:21 | P.PNCC ---
Subjective Subjective Remarks/Hospital Course: Patient is a 67-year-old female with past medical history significant for severe symptomatic aortic stenosis, chronic atrial fibrillation, previous tobacco abuse who was admitted today to Dr. Navarrete's service for transcatheter aortic valve replacement. Patient underwent TAVR procedure today with a 23 Karissa 3 tissue valve after balloon aortic valvuloplasty, and temporal pacemaker placement. Postprocedure patient was successfully extubated hemostasis was achieved. She was loaded with Plavix 600 mg and aspirin was continued. Patient was transferred to CVICU where I met her. Patient is lying comfortably in bed slightly somnolent. Bilateral pedal pulses are palpable and no groin hematomas bilaterally. Blood pressure was more than 170 currently started on claviprex infusion with good control. SUBJECTIVE: 8/: s/p TAVR. Resting in bed in no acute distress. Plan to discharge home today. Not complaining of pain. Objective Vital Signs / I&O: Vital Signs 04/16/18 10:56 04/16/18 11:00 04/16/18 12:00 Temperature 97.2 F L 97.5 F L Pulse Rate 66 68 Respiratory Rate 12 12 Blood Pressure 151/69 H 142/66 H Pulse Oximetry 99 93 L 96 04/16/18 12:11 04/16/18 12:57 04/16/18 14:00 Temperature 97.9 F 98.2 F Pulse Rate 68 79 80 Respiratory Rate 16 4 L Blood Pressure 132/65 Pulse Oximetry 94 L 04/16/18 15:00 04/16/18 15:27 04/16/18 16:00 Temperature 98.2 F 98.2 F Pulse Rate 73 69 Respiratory Rate 14 14 Blood Pressure 123/58 L 129/70 Pulse Oximetry 95 94 L 92 L 04/16/18 16:09 04/16/18 17:00 04/16/18 17:53 Temperature Pulse Rate 75 64 82 Respiratory Rate 14 14 Blood Pressure 118/52 L 141/82 H Pulse Oximetry 94 L 95 04/16/18 20:00 04/16/18 21:55 04/17/18 00:00 Temperature 97.9 F 97.8 F Pulse Rate 78 96 H Respiratory Rate 16 16 Blood Pressure 122/55 L 137/70 Pulse Oximetry 96 96 97 04/17/18 04:00 04/17/18 07:15 04/17/18 07:43 Temperature 98.0 F 98.2 F Pulse Rate 80 90 Respiratory Rate 16 20 Blood Pressure 154/71 H 146/64 H Pulse Oximetry 97 94 L 04/17/18 08:00 04/17/18 09:34 Temperature 98.2 F Pulse Rate 90 Respiratory Rate Blood Pressure 146/64 H Pulse Oximetry 95 95 Intake & Output 04/16/18 04/17/18 04/17/18 18:59 06:59 18:59 Intake Total 1830 / 1830 480 / 480 Output Total 2004 700 / 700 Balance -175 / -175 -220 / -220 Weight 106 kg Intake: IV 50 / 50 Ancef 2 GM Premix Inj 2 gm In 50 / 50 50 ml @ 100 mls/hr IV.SIG ONCE CHAUNCEY Rx#:[id number] Oral 480 / 480 480 / 480 Anesthesia Amount 1300 / 1300 Output: Urine 300 / 300 Estimated Blood Loss 30 / 30 Urine Amount (Catheter) 1974 400 / 400 Indwelling Urethral Catheter 1974 Straight 400 / 400 Other: Date of Last Bowel Movement 04/17/18 # Bowel Movements 0 Result Diagrams: 04/17/18 04:20 04/17/18 04:20 Objective Remarks: GENERAL: 62-year-old female resting in bed in no acute distress SKIN: Warm and dry. HEAD: Atraumatic. Normocephalic. EYES: Pupils equal and round. No scleral icterus. No injection or drainage. ENT: No nasal bleeding or discharge. Mucous membranes pink and moist. NECK: Trachea midline. No JVD. Right IJ cordis clean dry and intact without erythema CARDIOVASCULAR: Regular rate and rhythm. S1, S2 no S4. Without murmur RESPIRATORY: No accessory muscle use. Clear to auscultation. Breath sounds equal bilaterally. GASTROINTESTINAL: Abdomen soft, non-tender, nondistended. Hepatic and splenic margins not palpable. MUSCULOSKELETAL: Extremities with 1+ bilateral lower extremity edema NEUROLOGICAL: Awake and alert. No obvious cranial nerve deficits. Motor grossly within normal limits. Five out of 5 muscle strength in the arms and legs. Normal speech. PSYCHIATRIC: Appropriate mood and affect; insight and judgment normal. Assessment and Plan - Assessment and Plan Plan: NEURO/PSYCH: Depression/anxiety PTSD Fibromyalgia Continue home medications bupropion 150 mg daily, desvenlafaxine 100 mg daily, pregabalin 150 mg 3 times daily and quetiapine 400 mg at night Continue home medications of carbidopa/levodopa 25/10 0 2 tablets at night and pramipexole 0.5 3 times daily Continue with leflunomide 20 mg at night -Minimize any sedation -Oxycodone/acetaminophen 5/325 1 tablet every 6 hours as needed for pain RESP: History of COPD -Albuterol/ipratropium aerosols every 2 hours as needed -Aggressive pulmonary toilet -Oxygen by nasal cannula to keep saturation above 90% CV: s/p balloon valvuloplasty and TAVR Essential hypertension Hyperlipidemia -No significant leak on postop JOHANA per Dr. Thompson note -Temporary pacemaker wire had been removed -Loaded with clopidogrel 600 mg times, continue clopidogrel 75 mg daily and aspirin ordered for 325 mg daily discharge. Currently at 81 mg -Clevidipine gtt and PRN hydralazine for BP control -Currently on lisinopril 20 mg daily. Discontinue atenolol 50 mg daily. -Defer resuming home antihypertensives to Dr. Navarrete Previously on atorvastatin 10 mg daily for hyperlipidemia. Elevated triglycerides on preoperative labs Continue furosemide 40 mg daily GI: Gastroesophageal reflux disease History of colonic polyps Hyperlipidemia -diet per Dr. Navarrete Currently on pantoprazole 40 mg twice daily/home medication can be resumed. Continue dicyclomine 10 mg 3 times daily/home medication when discharged Renal/: -Monitor renal function closely. Slaughter catheter has been removed. Creatinine currently within normal limits ID: Urinary incontinence/recurrent UTI -Perioperative antibiotics with cefazolin completed. On suppressive amoxicillin 5 mg daily/home medication. Resume HEME: Leukocytosis -Monitor CBC, coags No indication for transfusion of Lovenox at this time FEN/ENDO: Diabetes mellitus Hypothyroidism -Electrolyte replacement per protocol -Sliding scale insulin if needed Continue levothyroxine 100 mcg by mouth daily PROPH: -Avoid chemical DVT prophylaxis until cleared by Dr. Navarrete. GI prophylaxis not indicated if patient can start diet today LINES: -Utilize right IJ cordis day #2 placed in OR's 04/16. Level 1 follow-up
--- NOTE | 2018-04-17 13:39 | ECG ---
Date Performed: 04/17/2018 Time Performed: 05:49:36 PTAGE: 67 years EKG: Sinus rhythm Possible inferior infarct - age undetermined Abnormal ECG Since the PREVIOUS TRACING , no significant change noted PREVIOUS TRACIN04/16/2018 10.21 DOCTOR: Hua Burgess Interpretating Date/Time 04/17/2018 13:39:00
--- NOTE | 2018-04-17 14:41 | ECHRPT ---
Indication: post tavr CONCLUSIONS The left ventricular systolic function is normal with an estimated ejection fraction in the range of 55-60%. Normal left ventricular size. Wall thickness is normal. No regional wall motion abnormalities are present. The aortic valve is not well visualized. Mild aortic valve stenosis. Aortic valve area is 1.1 cm. transcatheter aortic valve replacement Aortic valve mean gradient is 19.7 mmHg. The pulmonary valve is not well visualized. BP: / HR: Rhythm: MEASUREMENTS (Male / Female) Normal Values Technical Quality: 2D ECHO LV Diastolic Diameter PLAX 4.1 cm 4.2 - 5.9 / 3.9 - 5.3 cm LV Systolic Diameter PLAX 3.1 cm IVS Diastolic Thickness 1.1 cm 0.6 - 1.0 / 0.6 - 0.9 cm LVPW Diastolic Thickness 1.0 cm 0.6 - 1.0 / 0.6 - 0.9 cm LV Relative Wall Thickness 0.5 LVOT Diameter 1.6 cm M-MODE Aortic Root Diameter MM 1.4 cm LA Systolic Diameter MM 4.1 cm LA Ao Ratio MM 2.9 AV Cusp Separation MM 1.4 cm DOPPLER AV Peak Velocity 302.3 cm/s AV Peak Gradient 36.6 mmHg AV Mean Gradient 19.7 mmHg AV Velocity Time Integral 59.4 cm LVOT Peak Velocity 141.0 cm/s LVOT Peak Gradient 8.0 mmHg LVOT Velocity Time Integral 31.7 cm AV Area Cont Eq vti 1.1 cm AV Area Cont Eq pk 0.9 cm FINDINGS LEFT VENTRICLE The left ventricular systolic function is normal with an estimated ejection fraction in the range of 55-60%. Normal left ventricular size. Wall thickness is normal. No regional wall motion abnormalities are present. RIGHT VENTRICLE Normal right ventricular size and systolic function. LEFT ATRIUM The left atrial size is normal. RIGHT ATRIUM The right atrial size is normal. ATRIAL SEPTUM Normal atrial septal thickness without atrial level shunting by limited color doppler interrogation. AORTA The aortic root and proximal ascending aorta are normal in size on limited imaging. MITRAL VALVE Structurally normal mitral valve. No mitral valve stenosis or regurgitation. AORTIC VALVE The aortic valve is not well visualized. Mild aortic valve stenosis. Aortic valve area is 1.1 cm. Aortic valve mean gradient is 19.7 mmHg. TRICUSPID VALVE Structurally normal tricuspid valve. No tricuspid valve stenosis or regurgitation. PULMONARY VALVE The pulmonary valve is not well visualized. VESSELS The inferior vena cava is normal in size. PERICARDIUM No pericardial effusion. Steven Navarrete MD, FACC (Electronically Signed) Final Date:17 April 2018 14:40
[2018-04-17 15:08] VITALS: BP 130/71; PULSE 87; TEMP 98; O2SAT 95
--- NOTE | 2018-04-17 16:36 | ECG ---
Date Performed: 04/16/2018 Time Performed: 10:21:08 PTAGE: 67 years EKG: Sinus rhythm Normal ECG PREVIOUS TRACING :04/16/2018 @ 06.18 Small Q-waves now present in aVF DOCTOR: Hua Burgess Interpretating Date/Time 04/17/2018 16:36:06
== END 2018-04-17 16:30 | disposition home or self-care (01) ==
LOC: HDIC 05:19 → HCVI 10:18
PROVIDERS: ADMIT Internal Medicine; ATTEND Internal Medicine
PROC: TAVRHYB (ICD-10-PCS; 2018-04-16 07:31)